=== PATIENT | female | born 1955 | race Caucasian/White ===

== ENCOUNTER 2018-11-30 13:19 | Emergency (ER) | payer BC ==
[~2018-11-30] VITALS: Ht 162.6 cm; Wt 88.9 kg
[2018-11-30] MEDS ORDERED: AMLODIPINE BESYL5 MG PO (14:17)
[2018-11-30] MEDS ORDERED: LISINOPRIL20 MG PO (14:17)
[2018-11-30] MEDS ORDERED: 24HOUR ALLERGY10 MG PO (14:17)
[2018-11-30] MEDS ORDERED: VENTOLIN HFA18 GM INH (14:29)
[2018-11-30] MEDS ORDERED: PROMETH-CODEIN 65 ML PO (14:29)
[2018-11-30] MEDS ORDERED: ZITHROMAX250 MG PO (14:29)
[2018-11-30] MEDS ORDERED: DELTASONE20 MG PO (14:29)
== END 2018-11-30 14:46 | disposition home or self-care (01) ==
LOC: ED 13:19
DX: J40 Bronchitis, not specified as acute or chronic (principal); F17.200 Nicotine dependence, unspecified, uncomplicated; Z90.710 Acquired absence of both cervix and uterus; Z79.899 Other long term (current) drug therapy
CPT/HCPCS: 71045; 99284-25; J7512